=== PATIENT | male | born 1980 | race Two or more races ===

== ENCOUNTER 2024-07-14 17:19 | Emergency (ER) | payer MEDICAID, SELFPAY ==
[2024-07-14 17:20] VITALS: BMI 36.6
[2024-07-14 17:44] VITALS: BP 163/110; PULSE 118; RESP 18; TEMP 37.1; O2SAT 95; BMI 36.6
--- NOTE | 2024-07-14 17:51 | XR_ITS ---
Examination: CT brain head without contrast. 2-D sagittal coronal reconstructions Date and time of exam:July 14, 2024 1801 hours INDICATIONS: Patient fell today with laceration to the head and head pain CTDI: vol (mGy):62.9 DLP: (mGycm):1227 Technique: Multiple CT axial sections of the brain have been obtained, 5 mm slice thickness. Contrast has not been administered. 2-D sagittal, coronal reconstructions have been obtained Low dose protocols were performed. One or more of the following dose reduction techniques were used; automated exposure control, adjustment of the mA and/or KV according to patient size, use of iterative reconstruction technique. Findings: No significant ventricular enlargement. Posterior left scalp swelling Intra-axial or extra-axial hemorrhage density is not seen. No mass effect or midline shift Basal cisterns are not remarkable. Fourth ventricle is midline. Cranial vault intact. Impression: Negative for acute hemorrhage, mass effect or midline shift
--- NOTE | 2024-07-14 17:51 | EDRME_ITS ---
Rapid Medical Screening Exam [facility] Arrival date/time: 07/14/24 17:19 43-year-old male with no known medical history presents to the emergency room with a chief complaint of a laceration to the frontal part of his scalp. Patient states he was climbing up stairs fell and stumbled down 7 stairs. Patient states he has a headache and it is tender over the laceration is. I have greeted and performed a focused initial assessment of this patient. A comprehensive ED assessment and evaluation of the patient, analysis of all test results, and completion of the medical decision making process will be conducted by additional ED providers. Chief Complaint: Head Injury Vital signs: Vital Signs Temperature 98.8 F 07/14/24 17:44 Pulse Rate 118 H 07/14/24 17:44 Respiratory Rate 18 07/14/24 17:44 Blood Pressure 163/110 H 07/14/24 17:44 Pulse Oximetry (%) 95 07/14/24 17:44 Oxygen Delivery Method Room Air 07/14/24 17:44 Vital signs reviewed by provider: Yes
--- NOTE | 2024-07-14 17:51 | XR_ITS ---
Examination: CT cervical spine without contrast 2-D sagittal reconstructions 2-D coronal reconstructions 3-D reconstructions. Exam date and time:July 14, 2024 1801 hours INDICATIONS: Patient fell today with injury to the neck, neck pain CTDI:vol (mGy) 10.7 DLP: (mGycm) 229 Technique: Multiple 2 mm axial sections of the cervical spine have been obtained. The coronal and sagittal reconstructions have been obtained. 3-D reconstructions have been obtained. Low dose protocols were performed. One or more of the following dose reduction techniques were used; automated exposure control, adjustment of the mA and/or KV according to patient size, use of iterative reconstruction technique. Findings: Axial sections demonstrate intact base of the skull. C1 exhibit satisfactory relationship to the odontoid. No acute cervical vertebral body fracture seen. Alignment posterior spinous processes satisfactory. Impression: No acute cervical fracture.
--- NOTE | 2024-07-14 18:58 | PD.EDHEAD ---
ED Head Injury RME/HPI General Chief complaint: Head Injury Stated complaint: LAC TO HEAD, TRIP AND FALL FROM 7 STAIRS Time Seen by Provider: 07/14/24 18:15 Arrival date/time: 07/14/24 17:19 RME / HPI RME / HPI Narrative: 43-year-old male patient came in for evaluation regarding scalp laceration top of the head. Patient tripped and fell from 7 steps stairs, resulting into 3 cm gaping laceration, scalp, top of the head, patient complained of pain and tenderness denies any neck pain denies any other injury patient is ambulatory no LOC no nausea or vomiting. Incident happened earlier today. Related Data Allergies Allergy/AdvReac Type Severity Reaction Status Date / Time haloperidol (From Haldol) Allergy Severe Swelling Verified 07/14/24 17:22 of Lip/Tongue/Throat Review of Systems Review of Systems Narrative Review of Systems: Review of system reviewed and within normal limits except mentioned in HPI ED Exam Narrative Physical exam: VITAL SIGNS: Reviewed. GENERAL APPEARANCE: Alert and interactive, follows commands, no acute distress, HEAD AND FACE: 3 cm gaping laceration, scalp, top of the head ENT: PERRL, pink conjunctivitis, eyelid no trauma, Mucous membrane moist. NECK: Supple, nontender, no nuchal rigidity. CHEST: No tenderness, no crepitus, no paradoxical movement, no retractions. LUNGS: Clear, well ventilated, symmetric, no rales, no wheezing, no ronchi, no stridor, good breath sounds bilaterally. HEART: Regular rate, regular rhythm, no murmur, no gallops. ABDOMEN: Soft, positive bowel sounds, nondistended, no guarding, nontender, no rebound, no masses, RECTAL: Deferred. GENITAL: Deferred. NEUROLOGICAL: Gross motor function intact sensory function intact, Appropriate for age. MUSCULOSKELETAL: low back nontender, full range of motion. EXTREMITIES: Nontender, full range of motion. SKIN: Color pink, dry, no rash, no lacerations, no abrasions, no contusions. LYMPHATICS: Deferred. Course Quality Measures none Orders Category Date Time Status Stapler to Beside ONCE Care 07/14/24 17:[address] cervical spine wo con Stat Exams 07/14/24 17:[address] head/brain wo con Stat Exams 07/14/24 17:51 Completed Vital Signs Vital signs: Vital Signs Temperature 98.8 F 07/14/24 17:44 Pulse Rate 118 H 07/14/24 17:44 Respiratory Rate 18 07/14/24 17:44 Blood Pressure 163/110 H 07/14/24 17:44 Pulse Oximetry (%) 95 07/14/24 17:44 Oxygen Delivery Method Room Air 07/14/24 17:44 Head Injury MDM Narrative MDM Narrative:: 43-year-old male patient came in for evaluation regarding scalp laceration top of the head. Patient tripped and fell from 7 steps stairs, resulting into 3 cm gaping laceration, scalp, top of the head, patient complained of pain and tenderness denies any neck pain denies any other injury patient is ambulatory no LOC no nausea or vomiting. Incident happened earlier today. Application of stable was done by a different provider. CT scan of the head came back unremarkable CT scan of the neck came back unremarkable. Patient appears nontoxic and hemodynamically stable. Patient discharged home and instructed to follow-up with primary care provider in 24 to 48 hours. Instructed to return to the emergency department immediately if worsening of symptoms Patient data External records reviewed:: None Clinical information provided by:: patient Social determinants that could affect healthcare access:: none Patient has the following chronic illnesses:: None How is presenting disease/condition affected by chronic disease/condition?: no chronic disease Evaluation data The following diagnostics were reviewed and interpreted by me:: radiology exam(s) Lab and/or radiology exams considered but not ordered:: None Interpretation Summary: CT scan of the neck came back unremarkable. CT scan of the head came back unremarkable. Medications / Prescriptions Medications or Prescriptions considered but not ordered:: None Medication administrations:: None Consultations Consultation(s) initiated? (list below): No Diagnosis Differential diagnosis head injury: concussion without loss of consciousness and subarachnoid hematoma Most likely diagnosis given after review of the tests above:: Scalp laceration status post fall Admission Indicated Admission indicated?: not indicated Explain why admission is indicated or not indicated:: Stable Admission Request Was there a request for admission?: No Disposition Plan Disposition Plan: Discharge Discharge Attestation Discharge Attestation: The patient and all family members were given an opportunity to ask questions and understood the discharge instructions. Discharge instructions specifically effects, indications for sooner follow up or return to the emergency department, and the expected course of current diagnosis. Patient condition: Stable Discharge Plan Plan Patient Disposition: HOME (Self Care) Disposition Comment: Stable Prescriptions/Referrals Referrals: No Primary/Family,Physician [Primary Care Provider] - In 1 week Problem List Clinical Impression: Laceration of scalp, Fall Patient/Caregiver Discharge Instructions Discharge Activity: activity as tolerated Education Materials: First Aid: Head Injuries Additional Instructions: Thank you for the opportunity for serving you today. You are stable for discharged . You are advised to: Follow-up with your PCP in 1 to 2 days Return to ED for worsening of symptoms Increase oral fluids For removal of gibran in 7 days You may take Tylenol or Motrin as needed for pain Apply bacitracin daily as needed Print Language: Latvian Stand Alone Forms: Susan Award Info., Patient Portal Info Letter PA/[employer]ICE [employer]IDENT [employer] [place] Supervising Physician PA/[employer] [place] Supervising Physician: MD Taniya
--- NOTE | 2024-08-03 17:50 | PD.EDHEAD ---
ED Head Injury RME/HPI General Chief complaint: Head Injury Stated complaint: LAC TO HEAD, TRIP AND FALL FROM 7 STAIRS Time Seen by Provider: 07/14/24 18:15 Source: patient Arrival date/time: 07/14/24 17:19 43-year-old male with no known medical history presents to the emergency room with a chief complaint of a laceration to the top of his head. Patient states he tripped and fell down 7 steps. Patient denies any headache dizziness or vomiting. The incident happened this morning and patient denies any loss of consciousness. Mode of arrival: ambulatory Limitations: no limitations RME / HPI RME / HPI Narrative: 43-year-old male patient came in for evaluation regarding scalp laceration top of the head. Patient tripped and fell from 7 steps stairs, resulting into 3 cm gaping laceration, scalp, top of the head, patient complained of pain and tenderness denies any neck pain denies any other injury patient is ambulatory no LOC no nausea or vomiting. Incident happened earlier today. Related Data Allergies Allergy/AdvReac Type Severity Reaction Status Date / Time haloperidol (From Haldol) Allergy Severe Swelling Verified 07/14/24 17:22 of Lip/Tongue/Throat Review of Systems Review of Systems Systems Reviewed: All systems reviewed, normal except as documented Constitutional Constitutional: Reports system reviewed and no additional complaints, except as documented, Denies fatigue, Denies fever(s), Denies headache(s) and Denies weakness Eyes Eyes: Reports system reviewed and no additional complaints, except as documented, Denies blurry vision and Denies change in vision ENT Ears, Nose, Mouth, and Throat: Reports system reviewed and no additional complaints, except as documented, Denies otalgia, Denies headache(s), Denies nasal congestion, Denies throat swelling and Denies vertigo Cardiovascular Cardiovascular: Reports system reviewed and no additional complaints, except as documented, Denies chest pain, Denies dyspnea and Denies dyspnea on exertion Respiratory Respiratory: Reports system reviewed and no additional complaints, except as documented, Denies chest congestion, Denies cough, Denies dyspnea, Denies dyspnea on exertion and Denies wheezing Gastrointestinal Gastrointestinal: Reports system reviewed and no additional complaints, except as documented, Denies abdominal pain, Denies cramping, Denies nausea and Denies vomiting Genitourinary Genitourinary: Reports system reviewed and no additional complaints, except as documented, Denies dysuria and Denies hematuria Musculoskeletal Musculoskeletal: Reports system reviewed and no additional complaints, except as documented and Denies back pain Integumentary/Breasts Skin/Breast: Reports system reviewed and no additional complaints, except as documented and Denies wounds Neurologic Neurologic: Reports system reviewed and no additional complaints, except as documented, Denies confusion, Denies headache(s), Denies lack of coordination, Denies vertigo and Denies weakness Psychiatric Psychiatric: Reports system reviewed and no additional complaints, except as documented, Denies anxiety, Denies confusion, Denies depression, Denies paranoia, Denies suicidal ideation and Denies tactile hallucinations Endocrine Endocrine: Reports system reviewed and no additional complaints, except as documented and Denies fatigue Hematologic/Lymphatic Hematologic/Lymphatic: Reports system reviewed and no additional complaints, except as documented and Denies lymphadenopathy Allergic/Immunologic Allergic/Immunologic: Reports system reviewed and no additional complaints, except as documented, Denies throat swelling, Denies urticaria and Denies wheezing Past Medical History Social History SMOKING STATUS: Current every day smoker ED Exam General Limitations: Present no limitations General appearance: Present alert and in no apparent distress Head Head exam: Present atraumatic, normocephalic and normal inspection Expanded Head Exam Head exam physical: Present laceration; Absent abrasion, contusion, hematoma, raccoon eyes, Romero's sign, tenderness of temporal artery or CSF rhinorrhea Head image:  1. Laceration Eye Eye exam: Present normal appearance, PERRL and EOMI ENT ENT exam: Present normal exam, normal oropharynx and mucous membranes moist Neck Neck exam: Present normal inspection, full ROM and trachea midline Chest Chest inspection: Present normal inspection and symmetric chest wall rise Respiratory Respiratory exam: Present normal lung sounds bilaterally Cardiovascular Cardiovascular exam: Present regular rate, normal rhythm and normal heart sounds Abdominal Exam Abdominal exam: Present soft and normal bowel sounds Extremities Exam Extremities exam: Present normal inspection and full ROM Back Exam Back exam: Present normal inspection and full ROM Neurological Exam Neurological exam: Present alert, oriented X3 and CN II-XII intact Psychiatric Psychiatric exam: Present normal affect and normal mood Skin Skin exam: Present warm, dry, intact and normal color Course Quality Measures none Orders Category Date Time Status Stapler to Beside ONCE Care 07/14/24 17:[address] cervical spine wo con Stat Exams 07/14/24 17:[address] head/brain wo con Stat Exams 07/14/24 17:51 Completed Vital Signs Vital signs: Vital Signs Temperature 98.8 F 07/14/24 17:44 Pulse Rate 118 H 07/14/24 17:44 Respiratory Rate 18 07/14/24 17:44 Blood Pressure 163/110 H 07/14/24 17:44 Pulse Oximetry (%) 95 07/14/24 17:44 Oxygen Delivery Method Room Air 07/14/24 17:44 O2 saturation 95% on room air Procedures -ED Laceration Laceration 1: Site: scalp Size (cm): 3 Description: linear Depth: simple, single layer Local Anesthetic: lidocaine 1% Skin layer closed with: other ([place]) Number of sutures: 3 Technique: simple, interrupted Head Injury MDM Narrative MDM Narrative:: 43-year-old male with no known medical history presents to the emergency room with a chief complaint of a laceration to the top of his head. Patient states he tripped and fell down 7 steps. Patient denies any headache dizziness or vomiting. The incident happened this morning and patient denies any loss of consciousness. Patient was hemodynamically stable and in no apparent distress. The laceration occured this morning The mechanism of injury was falling down stairs 3 gibran were placed. There were no complications. Patient was educated to keep the area clean and dry for 24 hours, then clean daily with soap and water. Patient was educated to return for any signs of infection including swelling pain redness pus or fever and to make an appointment with primary care provider in 48 hours. Patient was educated to follow up with primary or return to emergency room for suture removal in the next 7-10 days. I have greeted and performed a focused initial assessment of this patient. A comprehensive ED assessment and evaluation of the patient, analysis of all test results, and completion of the medical decision making process will be conducted by additional ED providers. Patient data External records reviewed:: [facility] previous records Clinical information provided by:: patient Social determinants that could affect healthcare access:: none Patient has the following chronic illnesses:: No chronic illness How is presenting disease/condition affected by chronic disease/condition?: no chronic disease Evaluation data The following diagnostics were reviewed and interpreted by me:: lab results and radiology exam(s) Lab and/or radiology exams considered but not ordered:: Labs and radiology exams considered and ordered Interpretation Summary: N/A Medications / Prescriptions Medications or Prescriptions considered but not ordered:: Medication given Medication administrations:: Medication given Consultations Consultation(s) initiated? (list below): No Diagnosis Differential diagnosis head injury: concussion without loss of consciousness, closed head injury, subarachnoid hematoma, subdural hematoma, concussion with loss of consciousness and other (Scalp laceration) Most likely diagnosis given after review of the tests above:: Scalp laceration Admission Indicated Admission indicated?: not indicated Admission Request Was there a request for admission?: No Disposition Plan Disposition Plan: Discharge Discharge Attestation Discharge Attestation: The patient and all family members were given an opportunity to ask questions and understood the discharge instructions. Discharge instructions specifically effects, indications for sooner follow up or return to the emergency department, and the expected course of current diagnosis. Patient condition: Stable Discharge Plan Plan Patient Disposition: HOME (Self Care) Disposition Comment: Stable Prescriptions/Referrals Referrals: No Primary/Family,Physician [Primary Care Provider] - In 1 week Problem List Clinical Impression: Laceration of scalp, Fall Patient/Caregiver Discharge Instructions Discharge Activity: activity as tolerated Education Materials: First Aid: Head Injuries Additional Instructions: Thank you for the opportunity for serving you today. You are stable for discharged . You are advised to: Follow-up with your PCP in 1 to 2 days Return to ED for worsening of symptoms Increase oral fluids For removal of gibran in 7 days You may take Tylenol or Motrin as needed for pain Apply bacitracin daily as needed Print Language: Telugu Stand Alone Forms: Susan Award Info., Patient Portal Info Letter ASHLEY/ANSHUL Supervising Physician ASHLEY/ANSHUL Supervising Physician: MD Taniya
--- NOTE | 2024-08-03 17:55 | PD.ADDPROG ---
Addendum Progress Note Addendum Date of report being addended: 07/14/24 ED Procedures Laceration Laceration 1: Site: scalp Size (cm): 3 Description: linear Depth: simple, single layer Pre-repair: irrigated extensively Size (cm): other ([place]) Number of sutures: 3 Technique: simple, interrupted
== END 2024-07-14 19:42 | disposition home or self-care (01) ==
PROVIDERS: Emergency Provider Emergency Medicine
DX: S01.01XA Laceration without foreign body of scalp, initial encounter (principal); W10.9XXA Fall (on) (from) unspecified stairs and steps, initial encounter
CPT/HCPCS: 12002; 70450; 72125; 99284